=== PATIENT | male | born 1985 | race Caucasian/White ===

== ENCOUNTER 2017-12-01 01:19 | Emergency (ER) | END 2017-12-01 02:14 | disposition home or self-care (01) ==

== ENCOUNTER 2018-06-01 04:31 | Emergency (ER) | payer BC ==
[~2018-06-01] VITALS: Ht 172.7 cm; Wt 78.3 kg
[2018-06-01 04:51] VITALS: Ht 172.7 cm; Wt 78.3 kg
[2018-06-01 05:16] VITALS: BP 127/74; PULSE 92; RESP 18
--- NOTE | 2018-06-01 06:13 | ERD ---
ER Documentation Chief Complaint Chief Complaint non radiating chest pain/sob x 30 minutes HPI This is a 32-year-old male with no previous medical problems who presents to the emergency room for evaluation of chest pain. The patient states that the chest pain started 3 AM before he went to sleep. The patient localizes the chest pain to the center of his chest and described as a pressure-like sensation. He said he has some mild shortness of breath but denies any nausea, diaphoresis, vomiting. He denies any current pain or shortness of breath at this time and came to the ER for evaluation of his symptoms. ROS All systems reviewed and are negative except as per history of present illness. Allergies Allergies: Coded Allergies: No Known Drug Allergies (Verified Allergy, Unknown, 06/01/18) PMhx/Soc History of Surgery: No Anesthesia Reaction: No Hx Neurological Disorder: No Hx Respiratory Disorders: No Hx Cardiac Disorders: No Hx Psychiatric Problems: No Hx Miscellaneous Medical Probl: No Hx Alcohol Use: Yes Hx Substance Use: Yes (Cocaine) Hx Tobacco Use: Yes Physical Exam Vitals Vital Signs Date Temp Pulse Resp B/P (MAP) Pulse Ox O2 O2 Flow FiO2 Time Delivery Rate 06/01/18 92 18 127/74 99 Nasal 3.0 05:16 (91) Cannula 06/01/18 97.8 99 18 130/60 98 04:51 (83) Physical Exam INITIAL VITAL SIGNS: Reviewed by me GENERAL: The patient is well developed and appropriate for usual state of health in no apparent distress HEENT: Pupils equal, round, and reactive to light. EOMI. There is no scleral icterus. NECK: C-spine is soft and supple, there is no meningismus. There is no cervical lymphadenopathy. LUNGS: Clear to auscultation bilaterally. There are no rales, wheezes or rhonchi. HEART: Regular rate and rhythm, no murmurs, clicks, rubs or gallops. ABDOMEN: Soft, non-tender, non-distended. There are bowel sounds in all four quadrants. No rebound or guarding. EXTREMITIES: There is no peripheral cyanosis or edema. No focal swelling or erythema. NEUROLOGICAL: The patient moves all four extremities with 5/5 strength. Cranial nerves II - XII are intact. Normal gait. Alert and oriented SKIN: There is no apparent rash or petechiae. HEME/LYMPHATIC: There is no evidence of excessive bruising or lymphedema. PSYCHIATRIC: The patient does not appear anxious or depressed. Results 24 hrs Laboratory Tests Test 06/01/18 05:00 White Blood Count Pending Red Blood Count Pending Hemoglobin Pending Hematocrit Pending Mean Corpuscular Volume Pending Mean Corpuscular Hemoglobin Pending Mean Corpuscular Hemoglobin Concent Pending Red Cell Distribution Width Pending Platelet Count Pending Mean Platelet Volume Pending Procedures/MDM EKG: Rate/Rhythm: [Normal Sinus Rhythm] QRS, ST, T-waves: [No changes consistent w/ acute ischemia] Impression: [No evidence of ischemia or arrhythmia] This 32-year-old female presents to the emergency room for evaluation of chest pain. On my evaluation this patient is afebrile, nontoxic-appearing and hemodynamically stable. His EKG shows normal sinus rhythm with no ST elevation or depression or signs of acute ischemia. The patient is not hypoxic and has a pulse ox of 99% on room air and pulse is 94 bpm. I advised him that I will need to obtain some lab work and a chest x-ray to rule out any cardiac pathology. The patient states that "I do not want to wait anymore". Advised that I will not be able to completely rule out any life-threatening reason for chest pain unless he gets blood work done however he states "I have people coming over and I would need to go home". The patient does have capacity to make medical decisions and is aware that I am leaving AGAINST MEDICAL ADVICE could result in permanent disability or . Against Medical Advice Note The patient verbalized understanding of risks of signing out against medical adv ice including and disability. The patient explained to me the reason for wanting to sign out against medical advice, the patient does not want to wait. The patient is alert and oriented x 3 with decisional capacity and competence to sign out. They were welcomed to come back to ER and will be going home with discharge paperwork. Departure Diagnosis: Primary Impression: Chest pain Condition: CURTIS Patrick DO Jun 01, 2018 06:13
== END 2018-06-01 06:20 | disposition left against medical advice (07) ==
LOC: E/R 04:31
DX: R07.9 Chest pain, unspecified (principal); Z87.891 Personal history of nicotine dependence
CPT/HCPCS: 36415; 80048; 84484; 85025